=== PATIENT | female | born 1955 | race Caucasian/White ===

== ENCOUNTER 2024-07-21 07:45 | Day surgery (SDC) | payer OTHER, SELFPAY ==
[2024-07-21 08:17] VITALS: BP 128/69
[2024-07-21 08:28] VITALS: BMI 33.7
[2024-07-21 10:54] VITALS: BP 115/62
[2024-07-21 11:04] VITALS: BP 139/74
[2024-07-21 11:15] VITALS: BP 128/81
--- NOTE | 2024-07-21 11:29 | ITS.CL.IMPLP ---
[facility] - Implant Loop
Implant Loop
Procedure Report:
LINQ IMPLANTED MONITOR REMOVAL
Date of Procedure: July 21, 2024
Primary Care Provider: Dr. Nathaniel Chaves
Primary burglary investigator: Dr. Cali Mensah
PROCEDURES:
1. Removal of implanted loop recorder
INDICATION FOR PROCEDURE:
1. Loop Recorder at end of battery longevity
After informed consent was obtained,'time out' was called and confirmed, the patient was prepped and draped in a sterile fashion.
SEDATION: Via the anesthesia department with conscious sedation
Lidocaine with epi was used for local anesthesia. An incision was made along the prior incision and the Linq monitor was carefully dissected from the pocket. The pocket was liberally irrigated with antibiotic solution. The pocket was closed in
the typical fashion.
COMPLICATIONS:
None
CONCLUSIONS:
1. Removal of implanted loop recorder.
RECOMMENDATIONS:
Stable for discharge to home today
Copy to:
Dr. Nathaniel Chaves
Dr. Cali Mensah
== END 2024-07-21 11:45 | disposition home or self-care (01) ==
LOC: CATH 07:45
PROVIDERS: ATTENDING PHYSICIAN Internal Medicine Cardiovascular Disease; FAMILY PHYSICIAN Family Medicine; OTHER PHYSICIAN Internal Medicine Cardiovascular Disease
DX: Z09 Encounter for follow-up examination after completed treatment for conditions other than malignant neoplasm (principal); Z86.73 Personal history of transient ischemic attack (TIA), and cerebral infarction without residual deficits; I48.0 Paroxysmal atrial fibrillation; Z79.01 Long term (current) use of anticoagulants
CPT/HCPCS: 33286

== ENCOUNTER → 2025-02-09 15:05 | Outpatient (REF) | payer OTHER, SELFPAY | LOC: CLAB 15:05 | PROVIDERS: ATTENDING PHYSICIAN Specialist; OTHER PHYSICIAN Dermatology Dermatopathology | DX: C44.311 Basal cell carcinoma of skin of nose (principal) | CPT/HCPCS: 88307; 88332; 88331 ==

== ENCOUNTER → 2025-03-31 13:14 | Outpatient (REF) | payer OTHER, SELFPAY | LOC: HWWDC 13:14 | PROVIDERS: ATTENDING PHYSICIAN Student in an Organized Health Care Education/Training Program | DX: Z12.31 Encounter for screening mammogram for malignant neoplasm of breast (principal) | CPT/HCPCS: 77063; 77067 ==